=== PATIENT | male | born 1955 | race Caucasian/White ===

== ENCOUNTER 2023-01-27 23:43 | Emergency (ER) | payer OTHER, SELFPAY ==
[~2023-01-27] VITALS: Ht 165.1 cm; Wt 62.2 kg
[~2023-01-27 23:43] MED LIST: AMLO25TA PO; LOSA100T46 PO
[2023-01-28 01:10] LABS: BASO % 0.4 % (0.0-1.0); EOS # 0.1 10^3/uL (0.0-0.5); HEMATOCRIT 44.3 % (42.0-52.0); LYMPH # 1.5 10^3/uL (1.5-5.0); LYMPH % 18.5 % (24.0-44.0); MEAN CORPUSCULAR HEMOGLOBIN 28.4 pg (27.0-33.0); MEAN CORPUSCULAR HGB CONC 33.9 g/dl (32.0-36.5); MEAN CORPUSCULAR VOLUME 83.7 fl (80.0-96.0); MONO # 0.6 10^3/uL (0.0-0.8); MONO % 7.4 % (2.0-8.0); NEUTROPHILS # 5.8 10^3/uL (1.5-8.5); NEUTROPHILS % 72.6 % (36.0-66.0); PLATELET COUNT, AUTOMATED 271 10^3/uL (150-450); RED BLOOD COUNT 5.29 10^6/uL (4.30-6.10)
[2023-01-28 01:35] LABS: CK-MB VALUE MASS < 1.0 NG/ML (<3.6); LIPASE 27 U/L (12-53)
[2023-01-28 01:36] LABS: CPK CREATINE PHOSPHOKINASE 46 U/L (46-171); MB/CK RELATIVE INDEX 2.17 (< OR =4)
[2023-01-28 01:37] LABS: ALBUMIN 4.1 G/DL (3.2-5.2); ALKALINE PHOSPHATASE 66 U/L (46-116); ALT/SGPT 21 U/L (7.0-40); AST/SGOT 12 U/L (<34); BILIRUBIN,DIRECT 0.2 MG/DL (<0.4); BILIRUBIN,TOTAL 0.9 MG/DL (0.3-1.2); BLOOD UREA NITROGEN 13 MG/DL (9-23); CALCIUM LEVEL 8.9 MG/DL (8.3-10.6); CARBON DIOXIDE LEVEL 27 MMOL/L (20-31); CHLORIDE LEVEL 107 MMOL/L (98-107); GLOMERULAR FILTRATION RATE > 60.0 (>49); GLUCOSE, FASTING 117 MG/DL (74-106); POTASSIUM SERUM 3.7 MMOL/L (3.5-5.1); SODIUM LEVEL 143 MMOL/L (136-145); TOTAL PROTEIN 7.3 G/DL (5.7-8.2)
[2023-01-28] MEDS ORDERED: LOSARTAN 50MG TABLET PO ONE (05:50)
[2023-01-28] MEDS ORDERED: amLODIPine 5 MG TAB PO ONE (05:50)
[2023-01-28 07:46] VITALS: O2SAT 98
[2023-01-28] MEDS ORDERED: MAGNESIUM CITRATE 300ML BTL PO ONE (07:50)
[2023-01-28] MEDS ORDERED: TAMSULOSIN 0.4 MG CAP PO ONE (07:50)
[2023-01-28] MEDS ORDERED: COLA100C5 PO (07:55)
[2023-01-28] MEDS ORDERED: FLOM0.4C39 PO (07:55)
[2023-01-28 09:30] VITALS: BP 155/70; TEMP 97.9
== END 2023-01-28 09:30 | disposition home or self-care (01) ==
LOC: M ED 23:43
DX: K59.00 Constipation, unspecified (principal); R35.0 Frequency of micturition; I10 Essential (primary) hypertension; Z79.811 Long term (current) use of aromatase inhibitors; Z79.899 Other long term (current) drug therapy

== ENCOUNTER 2023-02-01 11:00 | Emergency (ER) | payer SELFPAY ==
[~2023-02-01] VITALS: Ht 165.1 cm; Wt 62.5 kg
[~2023-02-01 11:00] MED LIST changes: +COLA100C5 PO; +FLOM0.4C39 PO
[2023-02-01 11:16] VITALS: TEMP 98.1
[2023-02-01 12:43] LABS: BASO % 0.1 % (0.0-1.0); EOS % 0.2 % (0.0-3.0); HEMATOCRIT 31.1 % (42.0-52.0); HEMOGLOBIN 10.6 g/dl (13.5-17.5); LYMPH # 1.7 10^3/uL (1.5-5.0); LYMPH % 20.1 % (24.0-44.0); MEAN CORPUSCULAR HGB CONC 34.1 g/dl (32.0-36.5); MONO # 0.6 10^3/uL (0.0-0.8); MONO % 6.8 % (2.0-8.0); NEUTROPHILS # 6.1 10^3/uL (1.5-8.5); NEUTROPHILS % 72.6 % (36.0-66.0); PLATELET COUNT, AUTOMATED 309 10^3/uL (150-450); RED BLOOD COUNT 3.66 10^6/uL (4.30-6.10); WHITE BLOOD COUNT 8.4 10^3/uL (4.0-10.0)
[2023-02-01 13:04] LABS: LIPASE 72 U/L (12-53)
[2023-02-01 13:06] LABS: ALBUMIN 3.5 G/DL (3.2-5.2); ALKALINE PHOSPHATASE 50 U/L (46-116); ALT/SGPT 17 U/L (7.0-40); AST/SGOT 12 U/L (<34); BILIRUBIN,DIRECT 0.1 MG/DL (<0.4); BILIRUBIN,TOTAL 0.3 MG/DL (0.3-1.2); BLOOD UREA NITROGEN 23 MG/DL (9-23); CALCIUM LEVEL 8.7 MG/DL (8.3-10.6); CARBON DIOXIDE LEVEL 26 MMOL/L (20-31); CHLORIDE LEVEL 106 MMOL/L (98-107); CK-MB VALUE MASS < 1.0 NG/ML (<3.6); CPK CREATINE PHOSPHOKINASE 60 U/L (46-171); CREATININE FOR GFR 0.79 MG/DL (0.70-1.30); GLOMERULAR FILTRATION RATE > 60.0 (>49); GLUCOSE, FASTING 117 MG/DL (74-106); MB/CK RELATIVE INDEX 1.66 (< OR =4); POTASSIUM SERUM 4.1 MMOL/L (3.5-5.1); SODIUM LEVEL 141 MMOL/L (136-145); TOTAL PROTEIN 6.4 G/DL (5.7-8.2)
[2023-02-01] MEDS ORDERED: ISOVUE-370 76% 100ML VIAL As Ordered ONE (13:56)
[2023-02-01] MEDS: GASTROGRAFIN SOLUTION 30ML PO SCH ×2 (14:25→14:53)
[2023-02-01 16:00] VITALS: O2SAT 100
[2023-02-01 16:03] VITALS: BP 185/95
== END 2023-02-01 18:09 | disposition home or self-care (01) ==
LOC: M ED 11:00
DX: R55 Syncope and collapse (principal); R10.9 Unspecified abdominal pain; R19.4 Change in bowel habit; Z79.83 Long term (current) use of bisphosphonates; Z79.811 Long term (current) use of aromatase inhibitors; Z79.899 Other long term (current) drug therapy
CPT/HCPCS: 74018; 74177; 80048; 80076; 82550; 82553; 83690; 84484; 85025; 93005; 99284; Q9963; Q9967